=== PATIENT | female | born 1960 | race African-American/Black ===

== ENCOUNTER 2016-08-12 15:51 | Emergency (ER) | payer MEDICARE, OTHER ==
[~2016-08-12 15:51] MED LIST: *UNABLE2; ADVAIR250 INH; ATV.5 PO; CAT1 PO; CEFT2 PO; COREG12 PO; COREG25 PO; DIOVAN HC1 PO; EXFORGE1 TA2 PO; GLIPIZIDE; GLUCOPHAGE1000 MG PO; GLUCOTROL5 PO; GLUCOV5 PO; GLUCPH PO; GLUCXL5 PO; GLYBURIDE; Glyburide; IMDUR 30 MG; IMDUR30 PO; KOMBIGLYZE XR1 EAC2 PO; L80 PO; LISINOPRIL; LISINOPRIL40 MG PO; LOP50 PO; LOPID6 PO; MSCONTIN PO; MUCINEX600 MG PO; MULTIPLE VIT PO; NEUR100 PO; NEUR300 PO; NEUR600 PO; NEXIUM40 MG PO; NEXIUM40 PO; NICODERM C21 MG/241 TOP; NIFEDICAL XL30 MG PO; NORV10 PO; NORV5 PO; ONGLYZA2.5 MG PO; P20 PO; PCET PO; PERCOCET1 TA4 PO; PERCOCET1 TA5 PO; PLAVIX PO; PROAIR HFA INH; SPIRIVA INH; SUGAR PILL; SYMBICORT 160/41 INH INH; TOPROL XL200 MG PO; VENTOLIN HFA INH; WATER PILL; ZOCOR20 PO; [UNRECOGNIZED DRUG - REMARK]; [UNRECOGNIZED DRUG - REMARK]; [UNRECOGNIZED DRUG - REMARK] PO
== END 2016-08-12 19:35 | disposition left against medical advice (07) ==
LOC: ER 15:51
DX: Z53.21 Procedure and treatment not carried out due to patient leaving prior to being seen by health care provider (principal)
CPT/HCPCS: 93005

== ENCOUNTER 2016-09-30 03:09 | Emergency (ER) | payer MEDICARE, OTHER ==
[2016-09-30 02:56] LABS: BASOPHILS 0.3 %; BASOPHILS ABSOLUTE 0.03 10/3/uL (0.0-0.16); EOSINOPHILS 3.2 %; EOSINOPHILS ABSOLUTE 0.28 10/3/uL (0.0-0.53); ER CBC TAT 0 Hrs 00 Mins; HEMATOCRIT 35.5 % (36.0-48.0); HEMOGLOBIN 11.9 g/dL (12.0-16.0); IMMATURE GRANULOCYTES 0.2 %; IMMATURE GRANULOCYTES ABSOLUTE 0.02 10/3/uL (0.0-0.11); LYMPHOCYTES ABSOLUTE 2.34 10/3/uL (0.67-4.30); MEAN CORPUSCULAR HEMOGLOB 29.7 pg (26.0-34.0); MEAN CORPUSCULAR VOLUME 88.5 fL (80-100); MEAN PLATELET VOLUME 9.3 fL (9.2-13.0); MONOCYTES 6.9 %; NEUTROPHILS 62.4 %; RBC DISTRIBUTION WIDTH 14.5 % (12.0-16.0); RED CELL COUNT 4.01 10/6/uL (4.0-5.6); WHITE BLOOD CELLS 8.7 10/3/uL (4.5-10.5)
[2016-09-30 03:00] LABS: MANUAL DIFF NO %; MEAN CORPUS HGB CONC 33.5 g/dL (32.0-36.0); PLATELET COUNT 309 10/3/uL (150-400)
[2016-09-30 03:14] LABS: CHLORIDE, SERUM 107 MMOL/L (96-112); CO2 (CARBON DIOXIDE) 26 MMOL/L (24-34); POTASSIUM, SERUM 4.4 MMOL/L (3.5-5.3); SGOT(AST) 15 U/L (5-40); SGPT(ALT) 15 U/L (5-65); SODIUM, SERUM 140 MMOL/L (135-148); TOTAL BILIRUBIN 0.2 MG/DL (0-1.2); TOTAL PROTEIN 7.1 G/DL (6.0-8.5)
[2016-09-30 03:16] LABS: A/G RATIO 0.7 (0.7-1.9); ALKALINE PHOSPHATASE 114 U/L (45-117); BUN (BLOOD UREA NITROGEN) 35 MG/DL (6-23); CREATININE 3.22 MG/DL (0.55-1.02); DIRECT BILIRUBIN < 0.1 MG/DL (0.0-0.4); GFR AFRICAN AMERICAN 18 ML/MIN (>=60); GFR NON AFRICAN AMERICAN 15 ML/MIN (>=60); GLOBULIN 4.1 G/DL (2.5-4.1); GLUCOSE, SERUM 127 MG/DL (60-99); INDIRECT BILIRUBIN(NOT ORDER) 0.1 MG/DL (0.1-0.9)
== END 2016-09-30 03:25 | disposition home or self-care (01) ==
LOC: ER 03:09
PROVIDERS: Nurse Practitioner
DX: R10.9 Unspecified abdominal pain (principal); I13.0 Hypertensive heart and chronic kidney disease with heart failure and stage 1 through stage 4 chronic kidney disease, or unspecified chronic kidney disease; N18.9 Chronic kidney disease, unspecified; I50.9 Heart failure, unspecified; Z91.14 Patient's other noncompliance with medication regimen; J44.9 Chronic obstructive pulmonary disease, unspecified; E11.9 Type 2 diabetes mellitus without complications; Z87.440 Personal history of urinary (tract) infections; F17.200 Nicotine dependence, unspecified, uncomplicated; Z79.52 Long term (current) use of systemic steroids; Z79.84 Long term (current) use of oral hypoglycemic drugs; Z79.899 Other long term (current) drug therapy
CPT/HCPCS: 80053; 82248; 83690; 84484; 85025; 93005; 96374; 96375; 99285; J0360; J2405